=== PATIENT | male | born 1945 | race Caucasian/White ===

== ENCOUNTER 2020-11-09 20:47 | Emergency (ER) | payer OTHER, MEDICARE ==
[~2020-11-09] VITALS: Ht 167.6 cm; Wt 113.4 kg
[2020-11-09 21:22] LABS: ABSOLUTE NEUTROPHILS 7.1 thou/uL (1.4-8.2); BASOPHILS 0.7 % (0.0-2.0); EOSINOPHILS 2.2 % (0.0-3.0); HEMATOCRIT 40.1 % (42.0-52.0); HEMOGLOBIN 13.4 gm/dL (14.0-18.0); MCH 31.1 pg (26.0-34.0); MCHC 33.5 g/dL (28.0-37.0); MCV 92.7 fL (80.0-100.0); MONOCYTES 6.5 % (1.0-8.0); PLATELET COUNT 234 thou/uL (150-400); POLYS 53.6 % (36.0-66.0); RBC 4.33 mil/uL (4.50-6.00); RDW 14.1 % (10.5-14.5); WBC 13.2 thou/uL (4.0-11.0)
[2020-11-09 21:25] LABS: CALCIUM 9.3 mg/dL (8.5-10.1); CREATININE 1.3 mg/dL (0.7-1.3); POTASSIUM 3.6 mmol/L (3.5-5.1)
[2020-11-09 21:32] LABS: ALBUMIN 3.2 g/dL (3.4-5.0); DIRECT BILIRUBIN 0.1 mg/dL (<0.1-0.2); TOTAL BILIRUBIN 0.5 mg/dL (0.2-1.0); TOTAL PROTEIN 7.3 g/dL (6.4-8.2)
[2020-11-09 21:37] LABS: APTT 23.7 Seconds (24.5-32.8); INR 1.1; PROTIME 11.9 Seconds (9.3-11.4)
[2020-11-10] MEDS ORDERED: FLAGYL500 M1 PO (01:58)
[2020-11-10] MEDS ORDERED: CIPROFLOXACIN500 M1 PO (01:58)
[2020-11-10 02:09] VITALS: BP 124/80
== END 2020-11-10 02:10 | disposition home or self-care (01) ==
LOC: ER 20:47
PROVIDERS: Emergency Medicine
DX: K57.32 Diverticulitis of large intestine without perforation or abscess without bleeding (principal); K62.5 Hemorrhage of anus and rectum